=== PATIENT | male | born 1995 | race Caucasian/White ===

== ENCOUNTER 2016-12-25 12:39 | Emergency (ER) | payer OTHER ==
[2016-12-25 12:51] VITALS: RESP 18; TEMP 98.2; O2SAT 99
--- NOTE | 2016-12-25 13:34 | EDPHY ---
H & P Time Seen by Provider: 12/25/16 12:52 HPI/ROS: This patient describes irritability over the past week. When asked about this he explains that he has been losing his temper easily which is unusual for him including episode of feeling rage while driving. He has not acted impulsively based on his irritability anger and rage but he is quite bothered by the symptoms. He is concerned that symptoms may be attributable to Wellbutrin which she started a few weeks ago. He started this for depression with improvement in his mood. He explains he has more energy is been able to become more active since starting the medication currently on 100 mg twice daily. He also reports that his thyroid hormone level was slightly low 3 weeks ago when they checked it so the also started him on Synthroid at that time he is uncertain of his Synthroid dose. ROS: Constitutional: No fevers. No significant fatigue. He reports some difficulty with sleep last night and recent night but he still sleeping only 6 hours a night. Psychiatric: No flight of ideas, suicidal ideation, homicidal ideation or psychotic symptoms. HEENT: No coryza or other complaints Pulmonary: No cough shortness of breath Cardiovascular: No heart palpitations or lightheadedness GI: He has some nausea this week but is still tolerating p. o. intake and has no vomiting. Normal bowel movements. No abdominal pain at this time. : No complaints Integumentary: No skin rash Neuro: No numbness tingling or focal weakness. No headache. 10 point ROS is otherwise negative Past Medical/Surgical History: Depression Crohn's disease Hypothyroidism Social History: Patient is currently on leave of absence from [employer] due to depression. Identifies himself as a non practicing Religion. Plays [employer] and [employer] Nonsmoker Occasional beer Marijuana daily to every other day no recent change in the type of marijuana he has smoking. Smoking Status: Never smoked Physical Exam: General Appearance: Alert, no distress. Eyes: Pupils equal and round no pallor or injection. Pupils 4 mm equal react to light. ENT, Mouth: Mucous membranes moist. Respiratory: There are no retractions, lungs are clear to auscultation. Cardiovascular: Regular rate and rhythm. Gastrointestinal: Abdomen is soft and nontender, no masses, bowel sounds normal. Neurological: GCS 15 with no focal deficits Skin: Warm and dry, no rashes. Musculoskeletal: Neck is supple nontender. Extremities are symmetrical, full range of motion. Psychiatric: Mood and affect are currently normal. No pressured speech. No suicidal ideation, homicidal ideation, flight of ideas psychotic ideation DIFFERENTIAL DIAGNOSIS: After history and physical exam differential diagnosis was considered for thyroid disease, medication side effect, anxiety/agitation Constitutional: Initial Vital Signs Temperature (C) 36.8 C 12/25/16 12:46 Heart Rate 55 L 12/25/16 12:46 Respiratory Rate 18 12/25/16 12:46 Blood Pressure 135/80 H 12/25/16 12:46 O2 Sat (%) 99 12/25/16 12:46 O2 Delivery Mode Room Air Allergies/Adverse Reactions: amoxicillin Allergy (Verified 12/25/16 12:48) Home Medications: Medication Instructions Recorded Remicade Inj 100 mg (*) 12/25/16 Synthroid 12/25/16 Wellbutrin 100mg (*) 12/25/16 buPROPion [Wellbutrin] 100 mg PO DAILY #30 tab 12/25/16 MDM/Departure - MDM Diagnostics: Patient's TSH is normal. ED Course/Re-evaluation: Phlebotomy for TSH check I invited the patient's mother back to the room on his suggestion informed her of the plan Discussion: Patient with agitation for the past week on a Wellbutrin 150 mg 2 times a day over the last 3 weeks. The patient felt subjective improvement on the Wellbutrin in terms of his depression prior to the onset of the agitation. Ruled out functional thyroid disease with normal TSH and I think the patient may benefit from slightly diminishing his Wellbutrin dose. Will plan to decreased evening dose to 100 mg keeping the 150 mg dose in the morning. I also encouraged him to hold off on marijuana for a period Of time, explaining how that can sometimes lead to some agitation and his lipid soluble so good to have holidays away from at case it is building up in his system and contributing to his bothersome symptoms. Clinically, he does not have evidence of meliza, suicidal ideation or other concerning findings at this time. - Depart Disposition: Home, Routine, Self-Care Clinical Impression: Agitation, Nausea Condition: Good Instructions: Acute Nausea and Vomiting (ED) Additional Instructions: Diagnoses: 1. Agitation 2. Nausea Your TSH (thyroid test) today looks good, indicating that you seem to be on an appropriate Synthroid dose. Plan: Decrease your evening Wellbutrin dose to 100 mg a day. Continue your morning dose of 150 mg. Take a holiday off of the marijuana for period of time Daily exercise for 20 minutes or more S discuss Daily relaxation for 20 minutes or more Follow up with your primary physician who prescribed Wellbutrin sometime within the next 5-10 days for a recheck. Go to the emergency department for any significant worsening despite treatment plan Prescriptions: buPROPion [Wellbutrin] 100 mg PO DAILY #30 tab Referrals: Judi Ackerman MD [Primary Care Provider] - As per Instructions
[2016-12-25 15:04] VITALS: BP 135/75; PULSE 60
== END 2016-12-25 15:04 | disposition home or self-care (01) ==
LOC: CED 12:39
DX: R45.1 Restlessness and agitation (principal); R11.0 Nausea
CPT/HCPCS: 84443-PO